=== PATIENT | female | born 1950 | race Caucasian/White ===

== ENCOUNTER 2021-09-21 20:53 | Emergency (ER) | payer MEDICARE ==
[~2021-09-21] VITALS: Ht 167 cm; Wt 81.0 kg
[2021-09-21 21:07] VITALS: BP 138/73
--- NOTE | 2021-09-21 21:12 | ED Fall/Injury ---
General Stated Complaint: FELL,HIT HEAD History of Present Illness Date Seen by Provider: Sep 21, 2021 Time Seen by Provider: 21:08 Initial Comments 71-year-old female presents following a fall. Patient reports that she was walking her dogs when she got pulled off balance fell hit her head on the concrete. She has some small abrasions on her nose and chin. Patient reports that since the fall she is felt a little dizzy and a little off balance. She denies any nausea, vomiting. Patient does not have any focal weakness in her arms or legs. Allergies and Home Medications Patient Home Medication List Home Medication List Reviewed: Yes Review of Systems Review of Systems Constitutional: No chills; dizziness; No fever Eyes: See HPI Respiratory: no symptoms reported Cardiovascular: no symptoms reported Gastrointestinal: no symptoms reported Genitourinary: no symptoms reported Musculoskeletal: no symptoms reported Skin: see HPI Psychiatric/Neurological: See HPI Physical Exam Vital Signs Capillary Refill : Height, Weight, BMI Height: '" Weight: lbs. oz. kg; BMI Method: General Appearance: WD/WN, no apparent distress HEENT: PERRL/EOMI Neck: full range of motion, supple Cardiovascular: normal peripheral pulses, regular rate, rhythm Respiratory: lungs clear, normal breath sounds Gastrointestinal: non tender, soft Extremities: normal range of motion, non-tender, normal inspection Neurologic/Psychiatric: automatic clipper II-XII nml as tested, no motor/sensory deficits, alert, normal mood/affect, oriented x 3 Skin: other (Abrasions over her nose and chin) [place] Coma Score Best Eye Response: (4) Open Spontaneously Best Verbal Response: (5) Oriented Best Motor Response: (6) Obeys Commands Progress/Results/Core Measures Results/Orders My Orders Orders - TERREI COLLAZO DO Ct Head Wo (09/21/21 21:12) Progress Progress Note : Progress Note Patient symptoms are consistent with a mild concussion. Patient with a negative head CT. Discussed with her supportive care. Patient stable and discharged home. She should follow-up with her primary care provider if symptoms have not improved in approximately 7 to 10 days Diagnostic Imaging Diagonstic Imaging: CT Plain Films/CT/US/NM/MRI: head Comments PROCEDURE: CT head without contrast. TECHNIQUE: Multiple contiguous axial images were obtained through the brain without the use of intravenous contrast. Auto Exposure Controls were utilized during the CT exam to meet ALARA standards for radiation dose reduction. INDICATION: Fall. Head injury and head pain. COMPARISON: No comparison is available. FINDINGS: There are no CT findings of acute intracranial hemorrhage. There is no evidence of an abnormal extra-axial collection. There is no intracranial mass effect or shift. There is no hydrocephalus. Mccoy and white matter differentiation appears well maintained. There are no findings of vasogenic edema. The basilar cisterns are patent. Posterior fossa demonstrates no acute process. The mastoid air cells and the middle ear are clear. The visualized paranasal sinuses demonstrate no air-fluid level. The orbital contents are unremarkable. There is no acute calvarial fracture evident. IMPRESSION: 1. No CT evidence of intracranial hemorrhage or acute intracranial abnormality. 2. No identified fracture. Departure Impression Primary Impression: Concussion Qualified Codes: S06.0X0A - Concussion without loss of consciousness, initial encounter Additional Impressions: Abrasion of face Qualified Codes: S00.81XA - Abrasion of other part of head, initial encounter Closed head injury without loss of consciousness Qualified Codes: S09.90XA - Unspecified injury of head, initial encounter Disposition: 01 HOME, SELF-CARE Condition: Stable Departure-Patient Inst. Referrals: SELFNBA MD (PCP/Family) Primary Care Physician Patient Instructions: Closed Head Injury, Abrasions ED, Concussion, Adult ED Add. Discharge Instructions: Tylenol or ibuprofen as needed for pain Get plenty of rest Please follow-up with your primary care provider in 7 to 10 days if your symptoms or not improving or sooner if they continue to worsen TERRIE COLLAZO DO Sep 21, 2021 21:12
--- NOTE | 2021-09-21 21:35 | Diagnostic Imaging Report ---
PROCEDURE: CT head without contrast. TECHNIQUE: Multiple contiguous axial images were obtained through the brain without the use of intravenous contrast. Auto Exposure Controls were utilized during the CT exam to meet ALARA standards for radiation dose reduction. INDICATION: Fall. Head injury and head pain. COMPARISON: No comparison is available. FINDINGS: There are no CT findings of acute intracranial hemorrhage. There is no evidence of an abnormal extra-axial collection. There is no intracranial mass effect or shift. There is no hydrocephalus. Mccoy and white matter differentiation appears well maintained. There are no findings of vasogenic edema. The basilar cisterns are patent. Posterior fossa demonstrates no acute process. The mastoid air cells and the middle ear are clear. The visualized paranasal sinuses demonstrate no air-fluid level. The orbital contents are unremarkable. There is no acute calvarial fracture evident. IMPRESSION: 1. No CT evidence of intracranial hemorrhage or acute intracranial abnormality. 2. No identified fracture. Dictated by: Dictated on workstation # [id number]
== END 2021-09-21 21:57 | disposition home or self-care (01) ==
LOC: ER FS 20:56
DX: S06.0X0A Concussion without loss of consciousness, initial encounter (principal); S00.81XA Abrasion of other part of head, initial encounter; S00.31XA Abrasion of nose, initial encounter; W22.8XXA Striking against or struck by other objects, initial encounter
CPT/HCPCS: 70450